=== PATIENT | female | born 2000 | race Asian ===

== ENCOUNTER 2022-11-26 09:09 | Outpatient (CLI) | payer MEDICAID, SELFPAY ==
[2022-11-26 12:48] LABS: Chlamydia DNA Amplified* NOT DETECTED (No Detected); GC DNA Amplified* NOT DETECTED (No Detected)
== END 2022-11-26 09:10 | disposition home or self-care (01) ==
PROVIDERS: PCP Family Medicine; Visit Provider Registered Nurse
DX: Z11.3 Encounter for screening for infections with a predominantly sexual mode of transmission (principal)
CPT/HCPCS: 87491; 87591